=== PATIENT | male | born 1985 | race Caucasian/White ===

== ENCOUNTER → 2019-08-19 | Outpatient (REF) | payer BC ==
[2019-08-19 17:19] LABS: CHLAMYDIA DNA AMPLIFICATION NEGATIVE (NEGATIVE); GC DNA AMPLIFICATION NEGATIVE (NEGATIVE)
== END ==
LOC: M LAB REF 15:42
PROVIDERS: ATTEND Physician Assistant Medical
DX: Z20.2 Contact with and (suspected) exposure to infections with a predominantly sexual mode of transmission (principal); R30.0 Dysuria